=== PATIENT | female | born 1995 | race Two or more races ===

== ENCOUNTER 2019-01-28 13:58 | Inpatient (IN) | payer OTHER, MEDICAID ==
[2019-01-28] MEDS ORDERED: PENICILLIN G-K 5 MILLION UNIT VIAL ONE ×2 (14:53→18:59)
[2019-01-28] MEDS ORDERED: MISOPROSTOL 0.2 MG TABLET ONE (14:53)
[2019-01-28] MEDS ORDERED: OXYTOCIN/NORMAL SALINE 20 UNIT/1,000 ML RTUINJ ONE (14:54)
[2019-01-28] MEDS ORDERED: PENICILLIN G POTASSIUM 5,000,000 UNIT in DEXTROSE 5%-WATER 100 ML IV ONE (14:54)
[2019-01-28] MEDS ORDERED: RINGERS SOLUTION,LACTATED 1,000 ML IV ONE (14:54)
[2019-01-28] MEDS ORDERED: RINGERS SOLUTION,LACTATED 1,000 ML IV PRN (14:54)
[2019-01-28] MEDS ORDERED: LIDOCAINE 1% INJ-PF (10 MG/ML) 30 ML SDV ONE (14:54)
[2019-01-28] MEDS ORDERED: OXYTOCIN/NORMAL SALINE 20 UNIT/1,000 ML RTUINJ IV PRN ×2 (14:55→22:06)
[2019-01-28 14:56] LABS: APPEARANCE,URINE CLEAR; BILIRUBIN,URINE NEGATIVE (NEGATIVE); COLOR,URINE YELLOW; GLUCOSE, URINE NEGATIVE (NEGATIVE); KETONES,URINE NEGATIVE (NEGATIVE); LEUKOCYTE ESTERASE,URINE NEGATIVE (NEGATIVE); NITRITE,URINE NEGATIVE (NEGATIVE); PROTEIN,URINE 30 mg/dL (NEGATIVE); URINE SPECIFIC GRAVITY 1.023; UROBILINOGEN,URINE NEGATIVE mg/dL (<2.0)
[2019-01-28 15:17] LABS: URINE AMPHETAMINES SCREEN NEGATIVE; URINE BARBITURATES SCREEN NEGATIVE; URINE BENZODIAZEPINES SCREEN NEGATIVE; URINE COCAINE SCREEN NEGATIVE; URINE MARIJUANA (THC) SCREEN NEGATIVE; URINE METHADONE SCREEN NEGATIVE; URINE PHENCYCLIDINE SCREEN NEGATIVE
[2019-01-28 15:34] LABS: ABSOLUTE EOSINOPHILS # (AUTO) 0.1 10^3/uL (0.0-0.6); ABSOLUTE LYMPHOCYTES (AUTO) 1.4 10^3/uL (0.5-4.7); ABSOLUTE MONOCYTES (AUTO) 0.7 10^3/uL (0.1-1.4); ABSOLUTE NEUT (AUTO) 6.1 10^3/uL (1.7-8.2); BASOPHILS % (AUTO) 0.3 % (0-2); HEMATOCRIT 28.8 % (36.0-47.0); HEMOGLOBIN 9.3 g/dL (12.0-15.5); LYMPHOCYTES % (AUTO) 16.9 % (13-45); MEAN CORPUSCULAR HEMOGLOBIN 25.7 pg (27.0-33.4); MEAN CORPUSCULAR HGB CONC 32.4 g/dL (32.0-36.0); MEAN CORPUSCULAR VOLUME 79 fl (80-97); MONOCYTES % (AUTO) 8.7 % (3-13); PLATELET COUNT 259 10^3/uL (150-450); RED BLOOD COUNT 3.63 10^6/uL (3.72-5.28); RED CELL DISTRIBUTION WIDTH 16.8 % (11.5-14.0); SEGMENTED NEUTROPHILS % (AUTO) 73.1 % (42-78); TOTAL CELLS COUNTED % (AUTO) 100 %; WHITE BLOOD COUNT 8.4 10^3/uL (4.0-10.5)
--- NOTE | 2019-01-28 16:13 | Admission Physical ---
Datetime Report Generated by CPN: 01/28/2019 16:13 CURRENT ADMISSION Chief Complaint: Suspected Ruptured Membranes Indication for Induction: PROM Admit Impression : Term, Intrauterine ; Ruptured Membranes Admit Plan: Admit to Unit; Initiate Labor Protocol; Initiate Labor Augmentation Protocol ALLERGIES Medication Allergies: No Medication Allergies: No Known Allergies (01/28/2019) Latex: No Latex Allergies Food Allergies: No Environmental Allergies: No OBSTETRICAL HISTORY EDC: 01/31/2019 00:00 : 2 Para: 1 Term: 1 : 0 SAB: 0 IAB: 0 Livin Gestational Diabetes: No Rh Sensitization: No Incompetent Cervix: No POOJA: No Infertility: No ART Treatment: No Uterine Anomaly: No IUGR: No Hx Previous C/S: No Macrosomia: No Hx Loss/Stillborn: No PIH: No Hx : No Placenta Previa/Abruption: No Depression/PP Depression: Yes PTL/PROM: No Post Hemorrhage: No Current Procedures: Ultrasound Obstetrical History Comments: 09/04/2016 boy 10 epidural G2-current SEE RECORDS Alcohol: No Marijuana : Yes Marijuana Frequency: Occasional Previous Treatment: None Marijuana Comments: early MJ use (1st trimester) Cocaine: No Other Illicit Drugs: No Cigarettes: Former Smoker. [id number] Cigarette Frequency: < 5 per day Advised to Stop: Yes Cigarette Comments: quit just after +PT MEDICAL HISTORY Diabetes: No Blood Transfusion: No Pulmonary Disease (Asthma, TB): No Breast Disease: No Hypertension: No Traffic Investigator Surgery: No Heart Disease: No Hosp/Surgery: Yes Autoimmune Disorder: No Anesthetic Complications: No Kidney Disease: No Abnormal Pap Smear: No Neuro/Epilepsy: Yes Psychiatric Disorders: Yes Other Medical Diseases: No Hepatitis/Liver Disease: No Significant Family History: No Varicosities/Phlebitis: No Trauma/Violence : No Thyroid Dysfunction: No Medical History Comments: 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 --hx of mild depression _ cutting age 17 lap cholecystectomy 2017 INFECTIOUS HISTORY Gonorrhea: No Genital Herpes: No Chlamydia: No Tuberculosis: No Syphilis: No Hepatitis: No HIV/AIDS Exposure: No Rash or Viral Illness: No HPV: No PHYSICAL EXAM General: Normal HEENT: Normal Neurologic: Normal Thyroid: Normal Heart: Normal Lungs: Normal Breast: Normal Back: Normal Abdomen: Normal Genitourinary Exam: Normal Extremities: Normal DTRs: Normal Pelvic Type: Adequate Vital Signs: Reviewed VAGINAL EXAM Dilatation: 2 Effacement: 50 Station: -3 Contraction Comments: no regular MEMBRANES Pooling: Positive Membranes: Ruptured Amniotic Fluid Color: Clear FETUS A EGA: 39.4 Monitoring: External US FHR- Baseline: 125 Variability: Moderate 6-25bpm Accelerations: 15X15 Decelerations: None FHR Category: Category I Presentation: Vertex Admit Comment: with SROM at home and verified here. No regular ctx. SHe is GBS positive. WIll begin antibiotic prophylaxis by IV PCN now and continue until delivery. Pitoicin low dose protocol to augment since PROM confirmed. Hx on prior . Anticipate PLANS FOR LABOR AND DELIVERY Labor and Delivery: None Pain Management: Natural Feeding Preference: Both Benefit of Breast Feed Discussed: Yes Circumcision: Yes INFORMED CONSENT Informed Consent Obtained: Vaginal Delivery; Section Delivery; Vacuum/Forceps Assist; Risks, Benefits and Alternatives Discussed Signature: with User ID: [email or web address] : with User ID: [email or web address]
[2019-01-28] MEDS ORDERED: EPHEDRINE SULFATE INJ 50 MG/1 ML AMPULE ONE (20:05)
[2019-01-28] MEDS ORDERED: FENTANYL/BUPIVACAINE/NS/PF 300 MCG/150 ML RTUINJ EPI ONE (20:06)
[2019-01-28] MEDS ORDERED: BUPIVACAINE HCL 0.25 % INJ/PF (2.5 MG/1 ML) 30 ML VIAL ONE (20:06)
[2019-01-28] MEDS ORDERED: PROMETHAZINE HCL 25 MG SUPP.RECT PR PRN (22:06)
[2019-01-28] MEDS ORDERED: DIPH/PERTUSS(ACELL)/TETANUS VAC/PF 0.5 ML SYR (>=10YO) IM PRN (22:06)
[2019-01-28] MEDS ORDERED: ACETAMINOPHEN 650 MG SUPP.RECT PR PRN (22:06)
[2019-01-28] MEDS ORDERED: ACETAMINOPHEN WITH CODEINE #3 TABLET PO PRN ×2 (22:06)
[2019-01-28] MEDS ORDERED: MAGNESIUM HYDROXIDE SUSP 30 ML UDCUP PO PRN (22:06)
[2019-01-28] MEDS ORDERED: GLYCERIN/WITCH HAZEL LEAF 1 EACH MED..WIPE TP PRN (22:06)
[2019-01-28] MEDS ORDERED: PROMETHAZINE HCL INJ 25 MG/1 ML VIAL IV PRN (22:06)
[2019-01-28] MEDS ORDERED: PSEUDOEPHEDRINE HCL 30 MG TABLET PO PRN (22:06)
[2019-01-28] MEDS ORDERED: DIBUCAINE 1% OINTMENT 56 GM TP PRN (22:06)
[2019-01-28] MEDS ORDERED: ZOLPIDEM TARTRATE 5 MG TABLET PO PRN (22:06)
[2019-01-28] MEDS ORDERED: PROMETHAZINE HCL 25 MG TABLET PO PRN (22:06)
[2019-01-28] MEDS ORDERED: MEASLES,MUMPS&RUBELLA VACC/PF 0.5 ML VIAL SUBCUT PRN (22:06)
[2019-01-28] MEDS ORDERED: BENZOCAINE/MENTHOL AEROSOL SPRAY 56 ML TOP PRN (22:06)
[2019-01-28] MEDS ORDERED: NA PHOS,M-B/NA PHOS,DI-BA (ADULT) 133 ML ENEMA PR PRN (22:06)
[2019-01-28] MEDS ORDERED: DIPHENHYDRAMINE HCL 25 MG CAPSULE PO PRN (22:06)
[2019-01-29] MEDS ORDERED: BENZOCAINE/MENTHOL AEROSOL SPRAY 56 ML ONE (00:52)
[2019-01-29] MEDS ORDERED: IBUPROFEN 800 MG TABLET ONE ×2 (01:43→15:30)
[2019-01-29] MEDS: PENICILLIN G POTASSIUM 2,500,000 UNIT in DEXTROSE 5%-WATER 50 ML IV SCH ×3 (01:46→18:54)
--- NOTE | 2019-01-29 05:09 | Warning Signs in Babies ---
VOD Warning Signs Datetime Report Generated by [facility]: 01/29/2019 05:09 VOD#[id number] -Warning Signs in Babies: Needs to be viewed. (01/28/2019 14:08:Linda Gorman RN)
--- NOTE | 2019-01-29 06:28 | Delivery Summary ---
Del Sum A-C Datetime Report Generated by CPN: 01/29/2019 06:27 DELIVERY PERSONNEL DELIVERY PERSONNEL: [id number] Delivery Doctor:: Nichole Tidwell MD Labor and Delivery Nurse:: Estela Cottrell RNstrip mill operator Nurse:: Thalia Turner RN Airbrush Artist/SHOT HOLE SHOOTER: Mary [place], ST Airbrush Artist/SHOT HOLE SHOOTER: Vicki Hough, ST MATERNAL INFORMATION Delivery Anesthesia: Epidural Medications After Delivery: Pitocin Drip 20 Units/1000ml NSS Estimated Blood Loss (ml): 250 Delivery QBL: 200 Maternal Complications: None Provider Comments: After delivery of the head, the shoulders and the rest of the body followed easily. COrd clamping delayed 30 seconds as infant was vigorous. placed to Mothers chest after cord clamping. Both stable condition. LABOR SUMMARY EDC: 01/31/2019 00:00 No. Babies in Womb: 1 Attempted: No Labor Anesthesia: Epidural LABOR INFORMATION Reason for Induction: Not Applicable Onset of Labor: 01/28/2019 20:46 Complete Dilatation: 01/28/2019 21:23 Oxytocin: Augmentation Group B Beta Strep: positive Antibiotics # of Doses: 2 Antibiotics Time of Last Dose: 1903 Name of Antibiotic Given: PCN Steroids Given: None Reason Steroids Not Administered: Not Applicable MEMBRANES Membranes Rupture Method: Spontaneous Rupture of Membranes: 01/27/2019 21:00 Length of Rupture (hr): 24.67 Amniotic Fluid Color: Clear Amniotic Fluid Amount: Scant Amniotic Fluid Odor: Normal STAGES OF LABOR Stage 1 hr: 0 Stage 1 min: 37 Stage 2 hr: 0 Stage 2 min: 17 Stage 3 hr: 0 Stage 3 min: 7 Total Time in Labor hr: 1 Total Time in Labor min: 1 VAGINAL DELIVERY Episiotomy: None Laceration Extension #1: N/A Other Laceration: small right labial laceration less than 0.5 cm and was hemostatic. No repair required. Laceration Repair: No Sponge Count Correct: Yes Sharps Count Correct: Yes CSECTION DELIVERY Primary Indication: N/A Secondary Indication: N/A CSection Incidence: N/A Labor: N/A Elective: N/A CSection Incision: N/A BABY A INFORMATION Delivery Date/Time: 01/28/2019 21:40 Method of Delivery: Vaginal Born in Route : No : N/A Forceps: N/A Vacuum Extraction: N/A Shoulder Dystocia : No PRESENTATION/POSITION BABY A Presentation: Cephalic Cephalic Presentation: Vertex Vertex Position: Left Occipital Anterior Breech Presentation: N/A PLACENTA INFORMATION BABY A Placenta Delivery Time : 01/28/2019 21:47 Placenta Method of Delivery: Spontaneous Placenta Status: Retained SCORES BABY A Heart Rate 1 min: >100 bpm Resp Effort 1 min: Good Cry Reflex Irritability 1 min: Cough or Sneeze or Pulls Away Muscle Tone 1 min: Active Motion Color 1 min: Body [place], Extremities Blue Resuscitation Effort 1 min: Tactile Stimulation SCORE 1 MIN: 9 Heart Rate 5 min: >100 bpm Resp Effort 5 min: Good Cry Reflex Irritability 5 min: Cough or Sneeze or Pulls Away Muscle Tone 5 min: Active Motion Color 5 min: Body Carson, Extremities Blue Resuscitation Effort 5 min: Tactile Stimulation SCORE 5 MIN: 9 INFORMATION BABY A Gestational Age at Delivery: 39.4 Gestational Status: Full Term- 39- 40.6 Weeks Infant Outcome : Liveborn Infant Condition : Stable Sex: Male IDENTIFICATION BABY A Verification Date/Time: 01/28/2019 22:08 ID Band Number: [id number] Mother's Name Verified: Yes RN Verifying Infant: B. Ring _ J. Jose WEIGHT/LENGTH BABY A Infant Birthweight (gm): 3484 Infant Weight (lb): 7 Infant Weight (oz): 11 Infant Length (in): 21.00 Length (cm): 53.34 CORD INFORMATION BABY A No. Cord Vessels: 3 Nuchal Cord : N/A Cord Blood Taken: Yes-For Eval (Mom's Blood Type - or O+) Infant Suction: Mouth ASSESSMENT BABY A Complications: Multiple Variable Decels Physical Findings at Delivery: Molding of the Head Physical Findings- Other: See full nursery oakes machine operator Infant Respirations: Appears Normal Skin to Skin: Yes Skin to Skin Time (min): 60 Quality Coordinator/ALS Called : No Care By: Simran Michellemarisel RN Transferred To: Remains with Mother BABY B INFORMATION : N/A SIGNATURES Signature: with User ID: [email or web address] : with User ID: [email or web address]
[2019-01-29] MEDS: FAMOTIDINE 20 MG TABLET PO SCH ×3 (07:13→22:43)
[2019-01-29 08:47] LABS: HEMATOCRIT 26.1 % (36.0-47.0); HEMOGLOBIN 8.3 g/dL (12.0-15.5); MEAN CORPUSCULAR HEMOGLOBIN 25.4 pg (27.0-33.4); MEAN CORPUSCULAR HGB CONC 31.9 g/dL (32.0-36.0); MEAN CORPUSCULAR VOLUME 79 fl (80-97); PLATELET COUNT 234 10^3/uL (150-450); RED BLOOD COUNT 3.28 10^6/uL (3.72-5.28); RED CELL DISTRIBUTION WIDTH 16.5 % (11.5-14.0); WHITE BLOOD COUNT 11.5 10^3/uL (4.0-10.5)
[2019-01-29] MEDS ORDERED: PRENATAL VITAMIN W DHA CAPSULE PO ONE (09:35)
[2019-01-29] MEDS ORDERED: SENNOSIDES/DOCUSATE 8.6-50 MG 1 EACH TABLET ONE ×2 (09:35→15:29)
[2019-01-29] MEDS ORDERED: FERROUS SULFATE 325 MG TABLET PO ONE ×2 (09:36→15:30)
[2019-01-29] MEDS ORDERED: DOCUSATE SODIUM 100 MG CAPSULE ONE ×2 (09:36→15:29)
[2019-01-29] MEDS: PRENATAL VITAMIN W DHA CAPSULE PO SCH (09:39)
[2019-01-29] MEDS: FERROUS SULFATE 325 MG TABLET PO SCH ×2 (09:39→19:33)
[2019-01-29] MEDS: IBUPROFEN 800 MG TABLET PO SCH ×3 (09:40→22:42)
[2019-01-29] MEDS: SENNOSIDES/DOCUSATE 8.6-50 MG 1 EACH TABLET PO SCH (09:40)
[2019-01-29] MEDS: DOCUSATE SODIUM 100 MG CAPSULE PO SCH ×2 (09:40→19:33)
[2019-01-30] MEDS: IBUPROFEN 800 MG TABLET PO SCH ×2 (05:51→13:22)
[2019-01-30] MEDS: PRENATAL VITAMIN W DHA CAPSULE PO SCH (10:04)
[2019-01-30] MEDS: DOCUSATE SODIUM 100 MG CAPSULE PO SCH ×2 (10:04→17:02)
[2019-01-30] MEDS: FAMOTIDINE 20 MG TABLET PO SCH (10:04)
[2019-01-30] MEDS: FERROUS SULFATE 325 MG TABLET PO SCH ×2 (10:04→17:02)
[2019-01-30] MEDS: SENNOSIDES/DOCUSATE 8.6-50 MG 1 EACH TABLET PO SCH (10:04)
--- NOTE | 2019-01-30 10:11 | PDOC PROGRESS REPORT ---
Subjective-OB Progress Note for:: 01/30/19 Subjective: Doing well, ready to go home, bottle feeding, no c/o Physical Exam (OB) Vital Signs: Temp Pulse Resp BP Pulse Ox 97.4 F 80 16 119/65 100 01/30/19 07:34 01/30/19 07:34 01/30/19 07:34 01/30/19 07:34 01/30/19 07:34 Intake & Output 01/29/19 01/30/19 01/31/19 06:59 06:59 06:59 Intake Total 1999 400 Balance 1999 400 Weight 104.9 kg - PIH/Pre-Eclampsia DTR's: 1 + Clonus: Negative Headache: Absent Epigastric Pain: No Visual Changes: No - Lochia Lochia Amount: Scant < 10 ml Lochia Color: Rubra/Red - Abdomen Description: Soft, Round Hernia Present: No Fundal Description: Firm, Midline Fundal Height: u/u - u/2 Objective-Diagnostic Laboratory: 01/29/19 08:25 Assessment and Plan(PN) - Assessment and Plan (1) Marijuana smoker Is this a current diagnosis for this admission?: Yes (2) Depression Qualifiers: Trimester: unspecified trimester Is this a current diagnosis for this admission?: Yes (3) GBS (group B Streptococcus carrier), +RV culture, currently Is this a current diagnosis for this admission?: Yes (4) Normal vaginal delivery Is this a current diagnosis for this admission?: Yes (5) Anemia Qualifiers: Anemia type: iron deficiency Is this a current diagnosis for this admission?: Yes - Time Spent with Patient Time with patient: Less than 15 minutes Medications reviewed and adjusted accordingly: Yes - Disposition Anticipated Discharge: Home
--- NOTE | 2019-01-30 10:16 | PDOC DISCHARGE SUMMARY ---
Impression - Admit/DC Date/PCP Admission Date/Primary Care Provider: 01/28/19 15:15 JOE BALTAZAR MD Discharge Date: 01/30/19 - Discharge Diagnosis (1) Marijuana smoker Is this a current diagnosis for this admission?: Yes (2) Depression Is this a current diagnosis for this admission?: Yes (3) GBS (group B Streptococcus carrier), +RV culture, currently Is this a current diagnosis for this admission?: Yes (4) Normal vaginal delivery Is this a current diagnosis for this admission?: Yes (5) Anemia Is this a current diagnosis for this admission?: Yes - Additional Information Discharge Diet: As Tolerated, Regular Discharge Activity: Activity As Tolerated, No Lifting Over 10 Pounds, No Lifting/Push/Pulling, Pelvic Rest Referrals: JOE BALTAZAR MD [Primary Care Provider] - (4 weeks) Home Medications: Vitamin [-U Multiple Vitamin Capsule] 1 cap PO DAILY 01/28/19 HPI Gestational Age: 39.4 Reason(s) for Admission: Onset of Labor, Group B Strep Positive Admission Note: SROM, augmentation Procedures: NST, Ultrasound Intrapartum Procedure(s): Spontaneous Vaginal Delivery Complication(s): Laceration-Labial Hospital Course Hospital Course: routine Results Laboratory Results: WBC 11.5 10^3/uL (4.0-10.5) H 01/29/19 08:25 RBC 3.28 10^6/uL (3.72-5.28) L 01/29/19 08:25 Hgb 8.3 g/dL (12.0-15.5) L 01/29/19 08:25 Hct 26.1 % (36.0-47.0) L 01/29/19 08:25 MCV 79 fl (80-97) L 01/29/19 08:25 MCH 25.4 pg (27.0-33.4) L 01/29/19 08:25 MCHC 31.9 g/dL (32.0-36.0) L 01/29/19 08:25 RDW 16.5 % (11.5-14.0) H 01/29/19 08:25 Plt Count 234 10^3/uL (150-450) 01/29/19 08:25 Lymph % (Auto) 16.9 % (13-45) 01/28/19 15:10 Cata[place] % (Auto) 8.7 % (3-13) 01/28/19 15:10 Eos % (Auto) 1.0 % (0-6) 01/28/19 15:10 Baso % (Auto) 0.3 % (0-2) 01/28/19 15:10 Absolute Neuts (auto) 6.1 10^3/uL (1.7-8.2) 01/28/19 15:10 Absolute Lymphs (auto) 1.4 10^3/uL (0.5-4.7) 01/28/19 15:10 Absolute Monos (auto) 0.7 10^3/uL (0.1-1.4) 01/28/19 15:10 Absolute Eos (auto) 0.1 10^3/uL (0.0-0.6) 01/28/19 15:10 Absolute Basos (auto) 0.0 10^3/uL (0.0-0.2) 01/28/19 15:10 Seg Neutrophils % 73.1 % (42-78) 01/28/19 15:10 Urine Color YELLOW 01/28/19 14:15 Urine Appearance CLEAR 01/28/19 14:15 Urine pH 6.0 (5.0-9.0) 01/28/19 14:15 Ur Specific [place] 1.023 01/28/19 14:15 Urine Protein 30 mg/dL (NEGATIVE) H 01/28/19 14:15 Urine Glucose (UA) NEGATIVE mg/dL (NEGATIVE) 01/28/19 14:15 Urine Ketones NEGATIVE mg/dL (NEGATIVE) 01/28/19 14:15 Urine Blood NEGATIVE (NEGATIVE) 01/28/19 14:15 Urine Nitrite NEGATIVE (NEGATIVE) 01/28/19 14:15 Urine Bilirubin NEGATIVE (NEGATIVE) 01/28/19 14:15 Urine Urobilinogen NEGATIVE mg/dL (<2.0) 01/28/19 14:15 Ur Leukocyte Esterase NEGATIVE (NEGATIVE) 01/28/19 14:15 Urine Ascorbic Acid NEGATIVE (NEGATIVE) 01/28/19 14:15 Membranes Rupture POSITIVE (NEGATIVE) H 01/28/19 14:15 Urine Opiates Screen NEGATIVE 01/28/19 14:15 Urine Methadone Screen NEGATIVE 01/28/19 14:15 Ur Barbiturates Screen NEGATIVE 01/28/19 14:15 Ur Phencyclidine Scrn NEGATIVE 01/28/19 14:15 Ur Amphetamines Screen NEGATIVE 01/28/19 14:15 U Benzodiazepines Scrn NEGATIVE 01/28/19 14:15 Urine Cocaine Screen NEGATIVE 01/28/19 14:15 U Marijuana (THC) Screen NEGATIVE 01/28/19 14:15 RPR NONREACTIVE (NONREACTIVE) 01/28/19 15:10 HIV 1&2 Antibody NEGATIVE (NEGATIVE) 01/28/19 15:10 Rubella IgG Antibody 10.40 IU/mL 01/28/19 15:10 Rubella IgG Ab Interp POSITIVE 01/28/19 15:10 Blood Type O POSITIVE 01/28/19 15:10 Antibody Screen NEGATIVE 01/28/19 15:10 Plan Health Concerns: ear infection, continue home antibiotics, try Zyrtec Plan of Treatment: Zyrtec, if no improvement, Urgent care for ear check Goals: normal pp course Time Spent: Less than 30 Minutes
[2019-01-30 13:07] LABS: HEPATITS B SURFACE ANTIGEN Negative (Negative)
[2019-01-30 16:16] VITALS: BP 124/60
[2019-01-30] MEDS ORDERED: INFLUENZA QUAD (6MOS+) 2019-20 VAC 0.5 ML SYR IM ONE (16:47)
[2019-01-31] MEDS ORDERED: INFLUENZA QUAD (6MOS+) 2019-20 VAC 0.5 ML SYR IM ONE (08:00)
[2019-01-31 10:36] LABS: HEPATITIS C QUANTITATION HCV Not Detected IU/mL (.)
== END 2019-01-30 20:15 | disposition home or self-care (01) | DRG 807 ==
LOC: LC 13:58 → LR 15:15 → 2N 01-29 19:40
PROVIDERS: ADMIT Obstetrics & Gynecology; ATTEND Obstetrics & Gynecology
PROC: 10E0XZZ Delivery of Products of Conception, External Approach (ICD-10-PCS; principal; 2019-01-29)
PROC: 3E02340 Introduction of Influenza Vaccine into Muscle, Percutaneous Approach (ICD-10-PCS; 2019-01-30)
PROC: 3E0234Z Introduction of Serum, Toxoid and Vaccine into Muscle, Percutaneous Approach (ICD-10-PCS; 2019-01-30)
DX: O99.824 Streptococcus B carrier state complicating childbirth (principal); Z37.0 Single live birth; O99.324 Drug use complicating childbirth; F12.90 Cannabis use, unspecified, uncomplicated; O99.344 Other mental disorders complicating childbirth; F32.9 Major depressive disorder, single episode, unspecified; O99.02 Anemia complicating childbirth; D50.9 Iron deficiency anemia, unspecified; Z23 Encounter for immunization; Z87.891 Personal history of nicotine dependence; Z3A.39 39 weeks gestation of pregnancy
CPT/HCPCS: 36415; 80307; 81005; 84112; 85025; 85027; 86592; 86701; 86762; 86850; 86900; 86901; 87340; 87522; 90686; 90715; J2540; J2590; J3010; J3490